=== PATIENT | female | born 1990 | race Caucasian/White ===

== ENCOUNTER 2018-03-12 10:25 | Emergency (ER) | payer OTHER ==
[~2018-03-12] VITALS: Ht 162.6 cm; Wt 65.9 kg
[~2018-03-12 10:25] MED LIST: NORCO 325 MG-51 TAB PO; ULTRAM 50MG TAB50 MG PO; ZOFRAN8 MG PO
[2018-03-12 10:30] VITALS: BP 131/86; TEMP 98.7
[2018-03-12] MEDS ORDERED: FLEXERIL 1010 MG/TAB PO (12:15)
[2018-03-12 12:21] VITALS: PULSE 73
== END 2018-03-12 12:22 | disposition home or self-care (01) ==
LOC: COL.ER 10:25
DX: M54.6 Pain in thoracic spine (principal)
CPT/HCPCS: J1885